=== PATIENT | male | born 1980 ===

== ENCOUNTER → 2024-09-01 08:04 | Outpatient (CLI) | payer OTHER, SELFPAY ==
--- NOTE | 2024-09-01 08:32 | DI.RAD.S_ITS ---
PROCEDURE: XR CHEST 2V INDICATIONS: Cough TECHNIQUE: 2 views of the chest were acquired. COMPARISON: None. FINDINGS: Surgical changes and devices: None. Lungs and pleura: Lungs are clear. No pleural effusions or pneumothorax. Mediastinum: Mediastinal contours are normal. Heart size is normal. Bones and chest wall: No suspicious bony abnormalities. Soft tissues appear unremarkable. IMPRESSION: No acute cardiopulmonary abnormality is seen. Dictated by: Hayden Mayo M.D. on 09/01/2024 at 9:36 Approved by: Hayden Mayo M.D. on 09/01/2024 at 9:36
[2024-09-01 08:50] LABS: COVID-19 CEPHEID 4-PLEX PCR Negative (Negative); Influenza A - CEPHEID Flu A NEGATIVE (NEGATIVE); Influenza B - CEPHEID Flu B NEGATIVE (NEGATIVE); Respiratory Syncytial Virus Negative (Negative)
== END ==
PROVIDERS: Referring Provider Nurse Practitioner Family; Visit Provider Nurse Practitioner Family
DX: R05.1 Acute cough (principal); R05.9 Cough, unspecified
CPT/HCPCS: 0241U; 71046

== ENCOUNTER 2025-02-10 01:32 | Emergency (ER) | payer OTHER, SELFPAY ==
[2025-02-10 01:39] VITALS: BP 147/78; PULSE 72; RESP 16; TEMP 36.8; O2SAT 97; BMI 34.7
[2025-02-10 02:04] LABS: Add Manual Diff / Slide Review NO; Hematocrit 43.3 % (41-53); Hemoglobin 14.9 g/dL (13.5-17.5); Lymphocytes Absolute Auto 3100 /uL (1100-4500); Mean Corpuscular HGB Conc 34.3 % (30-36); Mean Corpuscular Hemoglobin 29.6 PG (26-34); Mean Corpuscular Volume 86.1 fL (80-100); Platelet Count 314 X10^3/uL (150-400)
[2025-02-10 02:43] LABS: Alanine Aminotransferase 31 IU/L (<50); Albumin 4.6 g/dL (3.5-5.0); Albumin Globulin Ratio 1.6 (1.0-2.8); Alkaline Phosphatase 64 U/L (38-126); Blood Urea Nitrogen 15 mg/dL (9-20); Calcium 9.5 mg/dL (8.4-10.2); Carbon Dioxide 23 mmol/L (22-32); Chloride 103 mmol/L (98-107); Estimated Glomerular Filt Rate > 60 mL/min (>60); Globulin 2.9 g/dL (1.7-4.1); Glucose 87 mg/dL (70-99); HEMOLYSIS < 15 (0-50); Lipase 39 U/L (23-300); Potassium 4.3 mmol/L (3.4-5.1); Sodium 135 mmol/L (137-145); Total Protein 7.5 g/dL (6.3-8.2)
--- NOTE | 2025-02-10 03:12 | ED.ABDPAIN ---
HPI - Abdominal Pain General Chief Complaint: Abdominal Pain Stated Complaint: hernia Time Seen by Provider: 02/10/25 01:58 Source: patient Mode of arrival: Ambulatory History of Present Illness HPI narrative: 44-year-old male history of atrial fibrillation not currently on any anticoagulation, history of umbilical hernia strangulation status post surgery, presents with abdominal right groin pain after lifting his E bike today 40 lb to go work and started to have pain. He denies any chest pain, shortness of breath, back pain, penile discharge, testicular pain, urinary symptoms, or nausea vomiting. Did have a bowel movement earlier tonight that was normal. Other than what is stated 14 point review of systems negative. Related Data Home Medications ?Medication ?Instructions ?Recorded ?Confirmed metoprolol tartrate 25 mg tablet 25 mg PO BID 09/01/24 09/01/24 Previous Rx's ?Medication ?Instructions ?Recorded benzonatate 200 mg capsule 200 mg PO BID PRN cough #28 caps 09/01/24 Allergies Allergy/AdvReac Type Severity Reaction Status Date / Time Penicillins Allergy Severe Anaphylaxis Verified 02/10/25 01:39 Review of Systems Review of Systems ROS Unobtainable: All systems reviewed & are unremarkable except as noted in HPI and below Patient History Social History Smoking Status: Current every day smoker Smoking Status: Current every day smoker tobacco type: vaping Exam Narrative Exam Narrative: GENERAL: [44] year old patient appears stated age. Well-developed patient, in mild distress. HEAD: Atraumatic. Normocephalic. EYES: Pupils equal round and reactive. Extraocular motions intact. No scleral icterus. No injection or drainage. NECK: Trachea midline. Non tender CARDIOVASCULAR: Regular rate and rhythm without murmurs, gallops, or rubs. RESPIRATORY: Clear to auscultation. Breath sounds equal bilaterally. No wheezes, rales, or rhonchi. GASTROINTESTINAL: Abdomen soft, non-tender, nondistended. EXTREMITIES: No edema or joint tenderness. BACK: Nontender without deformity or crepitance. No flank tenderness. NEURO: AOx3. SKIN: No rash or erythema of visible areas Initial Vital Signs Initial Vital Signs: Vital Signs Temperature 98.2 F 02/10/25 01:39 Pulse Rate 72 02/10/25 01:39 Respiratory Rate 16 02/10/25 01:39 Blood Pressure 147/78 H 02/10/25 01:39 Pulse Oximetry 97 02/10/25 01:39 Oxygen Delivery Method Room Air 02/10/25 01:39 Course Orders Ordered: ED Orders 02/10/25 01:50 Complete Blood Count AUTO DIFF Stat Comprehensive Metabolic Panel Stat Lipase Stat Ondansetron HCl (Ondansetron 4 Mg/2 Ml Inj) 4 mg IV NOW PRN PRN Reason: Nausea And Vomiting Ondansetron HCl (Ondansetron 4 Mg Odt) 4 mg PO NOW PRN PRN Reason: Nausea And Vomiting Vital Signs Vital signs: Vital Signs - 8 hr 02/10/25 01:39 Temperature 98.2 F Pulse Rate 72 Respiratory Rate 16 Blood Pressure 147/78 H Pulse Oximetry 97 Oxygen Delivery Method Room Air MDM - Abdominal Pain Lab Data 02/10/25 01:50 02/10/25 01:50 Labs: Lab Results 02/10/25 Range/Units 01:50 WBC 9.5 (4.5-11.0) X10^3/uL RBC 5.03 (4.5-5.9) X10^6/uL Hgb 14.9 (13.5-17.5) g/dL Hct 43.3 (41-53) % MCV 86.1 (80-100) fL MCH 29.6 (26-34) PG MCHC 34.3 (30-36) % RDW 13.0 (11.6-14.8) % Plt Count 314 (150-400) X10^3/uL Neut % (Auto) 55.6 (50-75) % Lymph % (Auto) 32.6 (25-40) % [place] % (Auto) 10.1 (3-14) % Eos % (Auto) 0.7 L (2-4) % Baso % (Auto) 1.0 (0-2) % Neut # (Auto) 5300 (8625-1228) /uL Lymph # (Auto) 3100 (3908-3279) /uL [place] # (Auto) 1000 H (0-900) /uL Eos # (Auto) 100 (0-450) /uL Baso # (Auto) 100 (0-100) /uL Sodium 135 L (137-145) mmol/L Potassium 4.3 (3.4-5.1) mmol/L Chloride 103 (98-107) mmol/L Carbon Dioxide 23 (22-32) mmol/L BUN 15 (9-20) mg/dL Creatinine 0.79 (0.66-1.25) mg/dL Estimated GFR > 60 (>60) mL/min BUN/Creatinine Ratio 19.0 (6-22) Glucose 87 (70-99) mg/dL Calcium 9.5 (8.4-10.2) mg/dL Total Bilirubin 0.8 (0.2-1.3) mg/dL AST 26 (17-59) IU/L ALT 31 (<50) IU/L Alkaline Phosphatase 64 (38-126) U/L Total Protein 7.5 (6.3-8.2) g/dL Albumin 4.6 (3.5-5.0) g/dL Globulin 2.9 (1.7-4.1) g/dL Albumin/Globulin Ratio 1.6 (1.0-2.8) Lipase 39 (23-300) U/L Point of care testing: Urine Dip Bedside Urine Glucose Negative Bedside Urine Bilirubin - Negative Bedside Urine Ketone - Negative Urine Specific [place] 1.010 Bedside Urine Occult Blood - Negative Bedside Urine pH 6.0 Bedside Urine Protein - Negative Bedside Urine Urobilinogen - Negative Bedside Urine Nitrite - Negative Bedside Urine Leukocytes - Negative Esterase Imaging Data CT scan - abdomen/pelvis: Radiologist's Impression: No evidence of colitis diverticulitis bowel obstruction obstructive uropathy or acute appendicitis MDM Narrative Medical decision making narrative: Vital signs, nurse triage note, medication list, previous ER visits, and all imaging studies reviewed. CT abdomen showed no evidence of colitis diverticulitis bowel obstruction obstructive uropathy or acute appendicitis. Normal white count sodium 135 rest CMP is normal including lipase. Differential diagnosis includes inguinal hernia, constipation, appendicitis, groin strain. Return with new or worsening symptoms Discharge Plan Departure Patient Disposition: Home Clinical Impression: Inguinal muscle strain Qualifiers: Encounter type: initial encounter Qualified Code(s): S39.013A - Strain of muscle, fascia and tendon of pelvis, initial encounter Instructions: DI for Abdominal Muscle Strain Activity Restrictions/Additional Instructions: Return with new or worsening symptoms. Take Tylenol and ibuprofen for pain control. Prescriptions: No Action metoprolol tartrate 25 mg tablet 25 mg PO BID benzonatate 200 mg capsule 200 mg PO BID PRN (Reason: cough) Qty: 28 0RF Referrals: Miscellaneous,Doctor [Primary Care Provider, Medical] Stand Alone Forms: Patient Portal/API
[2025-02-10 03:13] VITALS: PULSE 70; O2SAT 97
[2025-02-10 03:15] VITALS: BP 131/89; PULSE 63; O2SAT 99
--- NOTE | 2025-02-10 03:18 | DI.CT.S_ITS ---
PROCEDURE: CT ABDOMEN PELVIS W CON INDICATIONS: abd pain TECHNIQUE: After the administration of intravenous contrast, axial sections acquired from the lung bases to the pubic symphysis. Coronal and sagittal reformats were performed. For radiation dose reduction, the following was used: automated exposure control, adjustment of mA and/or kV according to patient size. COMPARISON: None. FINDINGS: Image quality: Diagnostic. Lower Chest: No significant findings. ABDOMEN: Liver: No solid mass. Gallbladder: No radiopaque gallstones or wall thickening. Biliary ducts: No biliary dilation. Pancreas: No ductal dilation. Spleen: Size is within normal limits. Adrenal Glands: No adrenal nodules. Kidneys and Ureters: No hydronephrosis. No solid mass. No complex renal cystic lesion which requires follow up. Stomach and Bowel: Normal colonic caliber, without significant wall thickening. Diverticulosis without evidence of acute diverticulitis. Peritoneum: No abnormal intraperitoneal fluid. No free air. Ventral Wall: No significant ventral hernia. Abdominal Nodes: No retroperitoneal or mesenteric adenopathy by size criteria. Vessels: Aorta and inferior vena cava are normal in size. PELVIS: Pelvic Organs: Unremarkable. Bladder: No bladder wall thickening, accounting for underdistention. Pelvic Nodes: No enlarged lymph nodes. Miscellaneous: Somewhat prominent fat containing right inguinal hernia. Bones: No aggressive osseous abnormality. IMPRESSION: 1. No acute process identified. 2. Somewhat prominent fat containing right inguinal hernia. 3. Mild diverticulosis. Comment: Final report is concordant with preliminary interpretation provided by [facility]. Dictated by: Hayden Mayo M.D. on 02/10/2025 at 8:20 Approved by: Hayden Mayo M.D. on 02/10/2025 at 8:24
[2025-02-10 03:34] VITALS: PULSE 81; O2SAT 98
[2025-02-10 03:35] VITALS: BP 108/54; PULSE 59; O2SAT 98
[2025-02-10 04:00] VITALS: BP 105/62; PULSE 59; O2SAT 93
== END 2025-02-10 04:38 | disposition home or self-care (01) ==
PROVIDERS: Emergency Provider Family Medicine
DX: S39.013A Strain of muscle, fascia and tendon of pelvis, initial encounter (principal); X50.0XXA Overexertion from strenuous movement or load, initial encounter; Z87.19 Personal history of other diseases of the digestive system
CPT/HCPCS: 36415; 74177; 80053; 81003; 83690; 85025; 99283; 99284; Q9967